=== PATIENT | male | born 1990 | race Caucasian/White ===

== ENCOUNTER 2023-05-02 01:20 | Emergency (ER) | payer MEDICAID, OTHER ==
[~2023-05-02] VITALS: Ht 172.7 cm; Wt 63.6 kg
[~2023-05-02 01:20] MED LIST: DEC4T PO
[2023-05-02 01:23] VITALS: BP 124/74; PULSE 71; RESP 16; TEMP 98; O2SAT 97
== END 2023-05-02 02:10 | disposition home or self-care (01) ==
LOC: ER 01:21
DX: F15.90 Other stimulant use, unspecified, uncomplicated (principal); F17.200 Nicotine dependence, unspecified, uncomplicated; Z72.89 Other problems related to lifestyle; Z88.0 Allergy status to penicillin; Z79.899 Other long term (current) drug therapy; V89.2XXA Person injured in unspecified motor-vehicle accident, traffic, initial encounter; Y93.89 Activity, other specified; Y92.89 Other specified places as the place of occurrence of the external cause; Y99.8 Other external cause status
CPT/HCPCS: 99283